=== PATIENT | male | born 1970 | race African-American/Black ===

== ENCOUNTER 2017-07-20 06:12 | Emergency (ER) | payer MEDICAID, OTHER ==
[~2017-07-20] VITALS: Ht 170.2 cm; Wt 72.6 kg
[~2017-07-20 06:12] MED LIST: ATEN25TA; ATORVASTATIN TAB 40MG; SYRI-219
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
--- NOTE | 2017-07-20 06:54 | NUR ---
Patient discharged to home in stable conditon. Written and verbal after care instructions given. Patient verbalizes understanding of instructions. peripheral IV removed. pt walked out of ED in stable and steady gait.
== END 2017-07-20 06:55 | disposition home or self-care (01) ==
LOC: ER 06:15
DX: E10.649 Type 1 diabetes mellitus with hypoglycemia without coma (principal); I10 Essential (primary) hypertension; Z79.4 Long term (current) use of insulin; Z79.899 Other long term (current) drug therapy
CPT/HCPCS: A4663

== ENCOUNTER → 2017-10-22 | Emergency (ER) | payer OTHER ==
[~2017-10-22] VITALS: Ht 167.6 cm; Wt 67.1 kg
--- NOTE | 2017-10-22 08:15 | NUR ---
Dr. Ochoa here to see pt for MSE.
--- NOTE | 2017-10-22 08:45 | NUR ---
Blood sugar of 138 and EKG reported to Dr. Ochoa. No order for insulin received from
[2017-10-22 08:46] LABS: BASOPHILS % (AUTO) 0.2 % (0.0-2.0); EOSINOPHILS % (AUTO) 0.4 % (0.0-7.0); HEMATOCRIT 34.2 % (36.7-47.1); HEMOGLOBIN 11.8 g/dL (12.5-16.3); LYMPHOCYTES % (AUTO) 12.6 % (20.5-51.5); MEAN CORPUSCULAR HEMOGLOBIN 30.1 uug (23.8-33.4); MEAN CORPUSCULAR HGB CONC 35 g/dL (32.5-36.3); MEAN CORPUSCULAR VOLUME 87.1 fL (73.0-96.2); MONOCYTES # (AUTO) 0.6 K/uL (2.0-10.0); MONOCYTES % (AUTO) 7.7 % (0.0-11.0); NEUTROPHILS # (AUTO) 6.1 K/uL (1.8-8.9); NEUTROPHILS % (AUTO) 79.1 % (38.5-71.5); PLATELET COUNT (AUTO) 263 K/uL (152-348); RED BLOOD CELL COUNT(AUTO) 3.92 MIL/uL (4.06-5.63); WHITE BLOOD COUNT (AUTO) 7.7 K/uL (3.6-10.2)
[2017-10-22 08:52] LABS: CREATININE 1.5 mg/dL (0.6-1.3); POTASSIUM 3.8 mmol/L (3.5-5.1)
[2017-10-22 09:33] VITALS: BP 131/71
--- NOTE | 2017-10-22 09:58 | NUR ---
Patient discharged to home in stable conditon via private car. Written and verbal after care instructions given. Patient verbalizes understanding of instructions. Pt to f/u with pcp within 1 week. Addendum: 10/22/17 at 1024 by SILVANA Right PIV removed and all belongings reviewed/returned to the pt.
== END | disposition home or self-care (01) ==
LOC: ER 08:07
DX: E10.649 Type 1 diabetes mellitus with hypoglycemia without coma (principal); I10 Essential (primary) hypertension; Z79.4 Long term (current) use of insulin; Z79.899 Other long term (current) drug therapy
CPT/HCPCS: 36415; 85025; 93005; A4663

== ENCOUNTER 2018-02-13 01:55 | Emergency (ER) | payer OTHER ==
[~2018-02-13] VITALS: Ht 167.6 cm; Wt 65.3 kg
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
[2018-02-13] MEDS ORDERED: HYDROCODONE/APAP 10-325 MG TABLET PO ONE (02:15)
[2018-02-13] MEDS ORDERED: HYDROCODONE/APAP 10-325 MG TABLET ONE (02:17)
--- NOTE | 2018-02-13 02:20 | NUR ---
Xray at bedside.
--- NOTE | 2018-02-13 02:30 | NUR ---
Patient discharged to home in stable conditon. Written and verbal after care instructions given. Patient verbalizes understanding of instructions.
[2018-02-13 02:31] VITALS: BP 144/81
== END 2018-02-13 02:32 | disposition home or self-care (01) ==
LOC: ER 01:58
DX: R07.89 Other chest pain (principal); I10 Essential (primary) hypertension; E10.9 Type 1 diabetes mellitus without complications; Z59.0 Homelessness
CPT/HCPCS: 71101; A4663

== ENCOUNTER 2018-02-16 22:49 | Inpatient (IN) | payer OTHER ==
[~2018-02-16] VITALS: Ht 167.6 cm; Wt 64.9 kg
[2018-02-16] MEDS ORDERED: ASPIRIN 81 MG TAB.CHEW PO ONE (23:15)
[2018-02-16] MEDS ORDERED: NITROGLYCERIN OINT 1 GM PACKET TP ONE ×2 (23:15→23:24)
[2018-02-16] MEDS ORDERED: LABETALOL HCL 100 MG/20 ML VIAL IV ONE (23:15)
[2018-02-16] MEDS ORDERED: IV NORMAL SALINE 1000 ML BAG IV ONE (23:15)
[2018-02-16] MEDS ORDERED: ASPIRIN 81 MG TAB.CHEW ONE (23:24)
[2018-02-16] MEDS ORDERED: LABETALOL HCL 100 MG/20 ML VIAL ONE (23:24)
[2018-02-16 23:32] LABS: HEMATOCRIT 30.3 % (36.7-47.1); HEMOGLOBIN 10.5 g/dL (12.5-16.3); LYMPHOCYTES % (AUTO) 7.5 % (20.5-51.5); MEAN CORPUSCULAR HEMOGLOBIN 29.9 uug (23.8-33.4); MEAN CORPUSCULAR HGB CONC 35 g/dL (32.5-36.3); MEAN CORPUSCULAR VOLUME 86.7 fL (73.0-96.2); MONOCYTES % (AUTO) 13.9 % (0.0-11.0); NEUTROPHILS % (AUTO) 77.7 % (38.5-71.5); PLATELET COUNT (AUTO) 258 K/uL (152-348); WHITE BLOOD COUNT (AUTO) 11.1 K/uL (3.6-10.2)
[2018-02-16 23:33] LABS: BASOPHILS # (AUTO) 0.1 K/uL (0.0-8.0); BASOPHILS % (AUTO) 0.8 % (0.0-2.0); EOSINOPHILS % (AUTO) 0.1 % (0.0-7.0); LYMPHOCYTES # (AUTO) 0.8 K/uL (20.0-40.0); MONOCYTES # (AUTO) 1.5 K/uL (2.0-10.0); NEUTROPHILS # (AUTO) 8.6 K/uL (1.8-8.9)
[2018-02-16 23:42] LABS: CREATININE 2.3 mg/dL (0.6-1.3); POTASSIUM 4.3 mmol/L (3.5-5.1)
[2018-02-16 23:54] LABS: BILIRUBIN,DIRECT 0.1 mg/dL (0.0-0.2); BILIRUBIN,TOTAL 0.5 mg/dL (0.2-1.0); TOTAL PROTEIN, SERUM 7.7 g/dL (6.4-8.2)
[2018-02-17 00:05] LABS: *BILIRUBIN,URIN 1+ (NEGATIVE); *BLOOD, URINE 2+ (NEGATIVE); *CLARITY,URINE CLEAR (CLEAR); *COLOR,URINE YELLOW (YELLOW); *KETONES,URINE 2+ (NEGATIVE); *PROTEIN,URINE 3+ (NEGATIVE); LEUKOCYTE ESTERASE ,URINE NEGATIVE (NEGATIVE); NITRITE, URINE NEGATIVE (NEGATIVE); UGLUCOSE NEGATIVE (NEGATIVE)
[2018-02-17 00:18] LABS: *AMPHETAMINE, URINE NEGATIVE (NEGATIVE); *BARBITURATE, URINE NEGATIVE (NEGATIVE); *CANNABINOID, URINE NEGATIVE (NEGATIVE); *COCCAINE, URINE NEGATIVE (NEGATIVE); *OPIATE, URINE POSITIVE (NEGATIVE); *PHENCYCLIDINE SCREEN,URINE NEGATIVE (NEGATIVE)
[2018-02-17 00:23] LABS: BACTERIA,URINE NONE SEEN /HPF (NONE SEEN); MUCUS,URINE FEW /LPF (0-FEW); SQUAMOUS EPITHELIAL CELL,UR FEW /HPF (NONE SEEN); WBC,URINE 0-3 /HPF (0-3)
[2018-02-17 01:24] VITALS: BP 166/89
[2018-02-17] MEDS ORDERED: ACETAMINOPHEN 325 MG TABLET PO PRN (01:45)
[2018-02-17] MEDS ORDERED: MAGNESIUM HYDROXIDE 30 ML LIQUID UDC PO PRN (01:45)
[2018-02-17] MEDS ORDERED: Z GUARD REMEDY PASTE 57 GM TUBE TOP PRN (01:45)
[2018-02-17] MEDS ORDERED: DEXTROSE 50% 50 ML DISP.SYRIN IV PRN (01:45)
[2018-02-17] MEDS ORDERED: ZOLPIDEM 5 MG TABLET PO PRN (01:45)
[2018-02-17] MEDS ORDERED: ONDANSETRON 4 MG/2 ML VIAL IV PRN (01:45)
[2018-02-17] MEDS ORDERED: FUROSEMIDE 20 MG/2 ML VIAL IV ONE (02:00)
[2018-02-17] MEDS ORDERED: VALSARTAN 80 MG TABLET PO ONE (02:00)
[2018-02-17] MEDS: CEFTRIAXONE 1 G in IV DEXTROSE 5% 50 ML IV SCH (02:45)
[2018-02-17] MEDS ORDERED: CEFTRIAXONE 1 G VIAL ONE (03:00)
[2018-02-17] MEDS: HYDROCODONE/APAP 5-325MG TABLET PO PRN ×3 (03:48→16:56)
[2018-02-17 04:00] VITALS: BP 120/67
[2018-02-17 04:13] LABS: BASOPHILS % (AUTO) 0.1 % (0.0-2.0); HEMATOCRIT 26.6 % (36.7-47.1); HEMOGLOBIN 9.3 g/dL (12.5-16.3); LYMPHOCYTES # (AUTO) 0.9 K/uL (20.0-40.0); LYMPHOCYTES % (AUTO) 7.7 % (20.5-51.5); MEAN CORPUSCULAR HEMOGLOBIN 30.4 uug (23.8-33.4); MEAN CORPUSCULAR HGB CONC 35 g/dL (32.5-36.3); MEAN CORPUSCULAR VOLUME 87.3 fL (73.0-96.2); MONOCYTES # (AUTO) 1.3 K/uL (2.0-10.0); MONOCYTES % (AUTO) 11.6 % (0.0-11.0); NEUTROPHILS # (AUTO) 9.2 K/uL (1.8-8.9); NEUTROPHILS % (AUTO) 80.6 % (38.5-71.5); PLATELET COUNT (AUTO) 220 K/uL (152-348); RED BLOOD CELL COUNT(AUTO) 3.05 MIL/uL (4.06-5.63); WHITE BLOOD COUNT (AUTO) 11.4 K/uL (3.6-10.2)
[2018-02-17 04:25] LABS: MAGNESIUM 1.7 mg/dL (1.8-2.4); PHOSPHOROUS 3.8 mg/dL (2.5-4.9)
[2018-02-17] MEDS: BLOOD SUGAR DIAGNOSTIC 1 EACH STRIP VI SCH ×4 (07:32→20:34)
[2018-02-17] MEDS: VALSARTAN 80 MG TABLET PO SCH (08:13)
[2018-02-17] MEDS: ASPIRIN 81 MG TAB.CHEW PO SCH (08:14)
[2018-02-17 11:18] VITALS: BP 130/73
[2018-02-17] MEDS ORDERED: MAGNESIUM OXIDE 400 MG TABLET PO ONE (13:15)
[2018-02-17 15:02] VITALS: BP 154/83
[2018-02-17] MEDS: INSULIN REGULAR, HUMAN 300 UNIT/3 ML VIAL SQ PRN ×2 (16:59→20:49)
[2018-02-17] MEDS: MORPHINE SULFATE 2 MG/1 ML DISP.SYRIN IV PRN (20:28)
[2018-02-17] MEDS: ATORVASTATIN 40 MG TABLET PO SCH (20:29)
[2018-02-17 20:56] VITALS: BP 171/87
[2018-02-17] MEDS: METOPROLOL TARTRATE 25 MG TABLET PO SCH (21:24)
[2018-02-18] VITALS (7 sets, daily range): BP systolic 132–168; BP diastolic 66–89
[2018-02-18] MEDS ORDERED: hydrALAZINE HCL 20 MG/1 ML VIAL ONE (00:11)
[2018-02-18] MEDS: hydrALAZINE HCL 20 MG/1 ML VIAL IV PRN ×2 (00:49→16:57)
[2018-02-18] MEDS: CEFTRIAXONE 1 G in IV DEXTROSE 5% 50 ML IV SCH (01:00)
[2018-02-18] MEDS: MORPHINE SULFATE 2 MG/1 ML DISP.SYRIN IV PRN ×2 (01:00→16:57)
[2018-02-18] MEDS: BLOOD SUGAR DIAGNOSTIC 1 EACH STRIP VI SCH ×4 (06:51→21:08)
[2018-02-18 07:48] LABS: CREATININE 1.9 mg/dL (0.6-1.3); MAGNESIUM 1.7 mg/dL (1.8-2.4)
[2018-02-18 08:16] LABS: POTASSIUM 6.2 mmol/L (3.5-5.1)
[2018-02-18] MEDS: INSULIN REGULAR, HUMAN 300 UNIT/3 ML VIAL SQ PRN ×4 (08:22→21:04)
[2018-02-18] MEDS: ASPIRIN 81 MG TAB.CHEW PO SCH (08:23)
[2018-02-18] MEDS: METOPROLOL TARTRATE 25 MG TABLET PO SCH ×2 (08:30→21:02)
[2018-02-18] MEDS: VALSARTAN 80 MG TABLET PO SCH (08:30)
[2018-02-18] MEDS ORDERED: SODIUM POLYSTYRENE SULFONATE 15 G/60 ML LIQUID UDC PO ONE (10:45)
[2018-02-18] MEDS ORDERED: FUROSEMIDE 40 MG TABLET PO ONE (10:45)
[2018-02-18] MEDS: CITRIC ACID/SODIUM CITRATE 30 ML SOLUTION PO SCH ×4 (11:02→20:55)
[2018-02-18] MEDS: MAGNESIUM SULFATE/D5W 100 ML IV SCH ×2 (11:02→12:07)
[2018-02-18 14:36] LABS: *BILIRUBIN,URIN NEGATIVE (NEGATIVE); *BLOOD, URINE NEGATIVE (NEGATIVE); *CLARITY,URINE CLEAR (CLEAR); *COLOR,URINE YELLOW (YELLOW); *KETONES,URINE 3+ (NEGATIVE); *PROTEIN,URINE TRACE (NEGATIVE); LEUKOCYTE ESTERASE ,URINE NEGATIVE (NEGATIVE); NITRITE, URINE NEGATIVE (NEGATIVE)
[2018-02-18 14:47] LABS: UGLUCOSE 2+ (NEGATIVE)
[2018-02-18 15:02] LABS: BACTERIA,URINE NONE SEEN /HPF (NONE SEEN); RBC,URINE 0-3 /HPF (0-3); SQUAMOUS EPITHELIAL CELL,UR FEW /HPF (NONE SEEN); WBC,URINE 0-3 /HPF (0-3)
[2018-02-18 15:19] LABS: *CREATININE,URINE 52.1 mg/dL (30-125); *URINE TOTAL PROTEIN RANDOM 37.7 mg/dL (<150/24HR)
[2018-02-18 15:24] LABS: CREATININE 1.9 mg/dL (0.6-1.3); POTASSIUM 4.8 mmol/L (3.5-5.1)
[2018-02-18] MEDS: HYDROCODONE/APAP 5-325MG TABLET PO PRN (19:56)
[2018-02-18] MEDS: ATORVASTATIN 40 MG TABLET PO SCH (20:55)
[2018-02-18] MEDS: INSULIN GLARGINE,HUM 300 UNITS/3 ML CARTRIDGE SQ SCH (21:08)
[2018-02-19] MEDS: CEFTRIAXONE 1 G in IV DEXTROSE 5% 50 ML IV SCH (01:00)
[2018-02-19] MEDS: HYDROCODONE/APAP 5-325MG TABLET PO PRN ×2 (03:26→20:05)
[2018-02-19 05:12] VITALS: BP 159/82
[2018-02-19 05:50] LABS: BASOPHILS # (AUTO) 0.1 K/uL (0.0-8.0); BASOPHILS % (AUTO) 0.7 % (0.0-2.0); EOSINOPHILS # (AUTO) 0.1 K/uL (0.0-0.7); EOSINOPHILS % (AUTO) 0.5 % (0.0-7.0); HEMATOCRIT 28.2 % (36.7-47.1); LYMPHOCYTES # (AUTO) 1.1 K/uL (20.0-40.0); LYMPHOCYTES % (AUTO) 10.1 % (20.5-51.5); MEAN CORPUSCULAR HEMOGLOBIN 30.8 uug (23.8-33.4); MEAN CORPUSCULAR HGB CONC 35 g/dL (32.5-36.3); MEAN CORPUSCULAR VOLUME 87.1 fL (73.0-96.2); MONOCYTES # (AUTO) 1.4 K/uL (2.0-10.0); MONOCYTES % (AUTO) 13.1 % (0.0-11.0); NEUTROPHILS # (AUTO) 8.2 K/uL (1.8-8.9); NEUTROPHILS % (AUTO) 75.6 % (38.5-71.5); PLATELET COUNT (AUTO) 358 K/uL (152-348); RED BLOOD CELL COUNT(AUTO) 3.24 MIL/uL (4.06-5.63); WHITE BLOOD COUNT (AUTO) 10.8 K/uL (3.6-10.2)
[2018-02-19 06:14] LABS: BILIRUBIN,TOTAL 0.3 mg/dL (0.2-1.0); CREATININE 1.6 mg/dL (0.6-1.3); MAGNESIUM 1.7 mg/dL (1.8-2.4); PHOSPHOROUS 4.5 mg/dL (2.5-4.9); POTASSIUM 3.3 mmol/L (3.5-5.1); TOTAL PROTEIN, SERUM 6.5 g/dL (6.4-8.2)
[2018-02-19] MEDS: BLOOD SUGAR DIAGNOSTIC 1 EACH STRIP VI SCH ×4 (06:40→20:14)
[2018-02-19] MEDS ORDERED: POTASSIUM CHLORIDE 20 MEQ TAB.PRT.SR PO ONE (08:00)
[2018-02-19] MEDS ORDERED: MAGNESIUM SULFATE/D5W 100 ML IV SCH (08:00)
[2018-02-19] MEDS: VALSARTAN 80 MG TABLET PO SCH (08:39)
[2018-02-19] MEDS: AMLODIPINE 5 MG TABLET PO SCH (08:39)
[2018-02-19] MEDS: METOPROLOL TARTRATE 25 MG TABLET PO SCH ×2 (08:40→20:05)
[2018-02-19] MEDS: CITRIC ACID/SODIUM CITRATE 30 ML SOLUTION PO SCH ×4 (08:40→20:05)
[2018-02-19] MEDS: ASPIRIN 81 MG TAB.CHEW PO SCH (08:40)
[2018-02-19] MEDS ORDERED: POTASSIUM CHLORIDE 10 MEQ TAB.PRT.SR PO ONE (09:00)
[2018-02-19 11:05] VITALS: BP 138/75
[2018-02-19] MEDS: INSULIN REGULAR, HUMAN 300 UNIT/3 ML VIAL SQ PRN ×3 (12:24→20:15)
[2018-02-19 15:05] VITALS: BP 159/86
[2018-02-19 20:00] VITALS: BP 139/71
[2018-02-19] MEDS: ATORVASTATIN 40 MG TABLET PO SCH (20:05)
[2018-02-19] MEDS: INSULIN GLARGINE,HUM 300 UNITS/3 ML CARTRIDGE SQ SCH (20:16)
[2018-02-20] MEDS: HYDROCODONE/APAP 5-325MG TABLET PO PRN ×2 (00:18→09:56)
[2018-02-20] MEDS: CEFTRIAXONE 1 G in IV DEXTROSE 5% 50 ML IV SCH (02:00)
[2018-02-20 04:00] VITALS: BP 160/92
[2018-02-20 06:09] LABS: BASOPHILS % (AUTO) 0.3 % (0.0-2.0); EOSINOPHILS # (AUTO) 0.1 K/uL (0.0-0.7); EOSINOPHILS % (AUTO) 0.8 % (0.0-7.0); HEMATOCRIT 30.3 % (36.7-47.1); HEMOGLOBIN 10.7 g/dL (12.5-16.3); LYMPHOCYTES # (AUTO) 1.4 K/uL (20.0-40.0); LYMPHOCYTES % (AUTO) 15.6 % (20.5-51.5); MEAN CORPUSCULAR HEMOGLOBIN 30.5 uug (23.8-33.4); MEAN CORPUSCULAR HGB CONC 36 g/dL (32.5-36.3); MONOCYTES # (AUTO) 1.2 K/uL (2.0-10.0); NEUTROPHILS # (AUTO) 6.4 K/uL (1.8-8.9); NEUTROPHILS % (AUTO) 70.3 % (38.5-71.5); PLATELET COUNT (AUTO) 402 K/uL (152-348); RED BLOOD CELL COUNT(AUTO) 3.52 MIL/uL (4.06-5.63); WHITE BLOOD COUNT (AUTO) 9.2 K/uL (3.6-10.2)
[2018-02-20] MEDS: BLOOD SUGAR DIAGNOSTIC 1 EACH STRIP VI SCH (06:37)
[2018-02-20 06:44] LABS: CREATININE 1.6 mg/dL (0.6-1.3); MAGNESIUM 1.7 mg/dL (1.8-2.4); PHOSPHOROUS 4.5 mg/dL (2.5-4.9)
[2018-02-20 06:50] LABS: BAND % (MANUAL) 1 % (0-10); LYMPHOCYTES % (MANUAL) 11 % (20-40); METAMYELOCYTES % 1 % (0-1); MONOCYTES % (MANUAL) 4 % (2-10); NEUTROPHILS % (MANUAL) 83 % (42-75)
[2018-02-20] MEDS ORDERED: AMLO5TAB7 PO (07:52)
[2018-02-20] MEDS ORDERED: METO25TA6 PO (07:52)
[2018-02-20] MEDS ORDERED: ATOR40TA PO (07:52)
[2018-02-20] MEDS ORDERED: ASPI81TA31 PO (07:52)
[2018-02-20] MEDS ORDERED: VALS80TA2 PO (07:52)
[2018-02-20] MEDS: CITRIC ACID/SODIUM CITRATE 30 ML SOLUTION PO SCH (09:05)
[2018-02-20 09:06] VITALS: BP 162/91
[2018-02-20] MEDS: AMLODIPINE 5 MG TABLET PO SCH (09:06)
[2018-02-20] MEDS: METOPROLOL TARTRATE 25 MG TABLET PO SCH (09:06)
[2018-02-20] MEDS: ASPIRIN 81 MG TAB.CHEW PO SCH (09:06)
[2018-02-20] MEDS: VALSARTAN 80 MG TABLET PO SCH (09:06)
[2018-02-20] MEDS ORDERED: hydrALAZINE HCL 25 MG TABLET PO SCH (14:00)
[2018-02-21 09:08] LABS: A/G RATIO 0.8 (0.7-1.7); ALBUMIN 2.6 g/dL (2.9-4.4); ALPHA-1-GLOBULIN 0.3 g/dL (0.0-0.4); ALPHA-2-GLOBULIN 0.9 g/dL (0.4-1.0); BETA GLOBULIN 0.9 g/dL (0.7-1.3); GLOBULIN, TOTAL 3.2 g/dL (2.2-3.9); M-SPIKE Not Observed g/dL (Not Observed)
== END 2018-02-20 11:10 | disposition home or self-care (01) | DRG 203 ==
LOC: ER 22:51 → TELE 02-17 00:30 → MED 02-18 16:20
PROVIDERS: ADMIT Nurse Practitioner Acute Care; ATTEND Hospitalist
DX: M94.0 Chondrocostal junction syndrome [Tietze] (principal); N17.0 Acute kidney failure with tubular necrosis; J90 Pleural effusion, not elsewhere classified; R65.10 Systemic inflammatory response syndrome (SIRS) of non-infectious origin without acute organ dysfunction; E10.65 Type 1 diabetes mellitus with hyperglycemia; E83.42 Hypomagnesemia; I11.9 Hypertensive heart disease without heart failure; E87.5 Hyperkalemia; Z59.0 Homelessness; E78.5 Hyperlipidemia, unspecified; Z96.41 Presence of insulin pump (external) (internal); M25.512 Pain in left shoulder
CPT/HCPCS: 36415; 70030-TC; 71045; 76770; 80307; 83605; 83735; 83970; 84100; 84133; 84155; 84156; 84165; 84300; 84443; 85025; 93005; 93307; A4663; G0378; J0360; J0696; J1815; J1940; J2270; J3475; J3490; J7030; J7050; J7060

== ENCOUNTER 2018-05-14 00:39 | Emergency (ER) | payer OTHER ==
[~2018-05-14] VITALS: Ht 167.6 cm; Wt 63.5 kg
[~2018-05-14 00:39] MED LIST changes: +AMLO5TAB9 PO; +ASPI81TA31 PO; -ATEN25TA; +ATOR40TA PO; -ATORVASTATIN TAB 40MG; +METO25TA6 PO; +VALS80TA2 PO
[2018-05-14] MEDS ORDERED: KETOROLAC TROMETHAMINE 60 MG INJ IM ONE ×2 (01:00→01:02)
--- NOTE | 2018-05-14 01:00 | NUR ---
Pt. ambulated into ED w/ c/o 01/30 L neck pain X 4 days that radiates to L shoulder and upper back, pt. denies falling or any other mechanical injury, denies TOSCANO/F/C/N/V/D/SOB/CP, denies dizziness, visual disturbances, will continue to monitor,
--- NOTE | 2018-05-14 01:31 | NUR ---
Pt. resting in bed w/ eyes closed within view of nursing station, NAD
--- NOTE | 2018-05-14 01:32 | NUR ---
Called Radiology for Xray
--- NOTE | 2018-05-14 01:40 | NUR ---
Rad. tech at bedside for xray
--- NOTE | 2018-05-14 02:06 | NUR ---
Patient discharged to home in stable conditon. Written and verbal after care instructions given. Patient verbalizes understanding of instructions. Pt. d/c w/ prescription per MD order, d/c papers signed, ID band removed, all belongings w/ pt., instructed not to drive, ambulated out of ED w/ steady gait, NAD
== END 2018-05-14 02:12 | disposition home or self-care (01) ==
LOC: ER 00:41
DX: M54.12 Radiculopathy, cervical region (principal); E10.9 Type 1 diabetes mellitus without complications; I10 Essential (primary) hypertension; Z59.0 Homelessness; Z79.82 Long term (current) use of aspirin; Z79.4 Long term (current) use of insulin; Z79.899 Other long term (current) drug therapy
CPT/HCPCS: 72040; 93005; 96372; 99283; J1885; A4663

== ENCOUNTER 2018-05-29 23:59 | Emergency (ER) | payer OTHER ==
[~2018-05-29] VITALS: Ht 167.6 cm; Wt 63.5 kg
--- NOTE | 2018-05-30 00:45 | NUR ---
Pt ambulated into dept with c/o epigastric pain x1 day and hyperglycemia. Patient a/o x 4. Patient stated that he checked blood sugar earlier today and it resulted in "HI" so he self administered 33Units of Humalog. Patient's pain scale 10/10, irritable, facial grimacing. Patient c/o some nausea, respiratory rate unlabored.
[2018-05-30] MEDS ORDERED: ONDANSETRON ODT 4 MG TAB.RAPDIS ONE (01:01)
[2018-05-30] MEDS ORDERED: FAMOTIDINE 20 MG TABLET ONE (01:02)
[2018-05-30] MEDS ORDERED: HYDROCODONE/APAP 10-325 MG TABLET ONE (01:02)
[2018-05-30] MEDS ORDERED: MAG HYDROX/AL HYDROX/SIMETH 30 ML LIQUID UDC ONE (01:02)
[2018-05-30] MEDS ORDERED: DICYCLOMINE HCL LIQ 10 MG/5 ML UDC ONE (01:03)
[2018-05-30] MEDS ORDERED: LIDOCAINE VISCUS 2% 15 ML UDC ONE (01:04)
[2018-05-30] MEDS: MAG HYDROX/AL HYDROX/SIMETH 30 ML LIQUID UDC PO ONE (01:10)
[2018-05-30] MEDS: LIDOCAINE VISCUS 2% 15 ML UDC MM ONE (01:10)
[2018-05-30] MEDS: DICYCLOMINE HCL LIQ 10 MG/5 ML UDC PO ONE (01:10)
[2018-05-30] MEDS: FAMOTIDINE 20 MG TABLET PO ONE (01:11)
[2018-05-30] MEDS: HYDROCODONE/APAP 10-325 MG TABLET PO ONE (01:11)
[2018-05-30] MEDS: ONDANSETRON ODT 4 MG TAB.RAPDIS SL ONE (01:11)
[2018-05-30 01:15] LABS: BASOPHILS # (AUTO) 0.1 K/uL (0.0-8.0); BASOPHILS % (AUTO) 0.7 % (0.0-2.0); EOSINOPHILS % (AUTO) 0.5 % (0.0-7.0); HEMATOCRIT 32.6 % (36.7-47.1); HEMOGLOBIN 11.2 g/dL (12.5-16.3); LYMPHOCYTES # (AUTO) 1.6 K/uL (20.0-40.0); LYMPHOCYTES % (AUTO) 19.6 % (20.5-51.5); MEAN CORPUSCULAR HEMOGLOBIN 29.7 uug (23.8-33.4); MEAN CORPUSCULAR HGB CONC 34 g/dL (32.5-36.3); MEAN CORPUSCULAR VOLUME 86.3 fL (73.0-96.2); MONOCYTES # (AUTO) 0.9 K/uL (2.0-10.0); MONOCYTES % (AUTO) 10.8 % (0.0-11.0); NEUTROPHILS # (AUTO) 5.5 K/uL (1.8-8.9); NEUTROPHILS % (AUTO) 68.4 % (38.5-71.5); PLATELET COUNT (AUTO) 256 K/uL (152-348); RED BLOOD CELL COUNT(AUTO) 3.78 MIL/uL (4.06-5.63); WHITE BLOOD COUNT (AUTO) 8.1 K/uL (3.6-10.2)
[2018-05-30 01:20] LABS: BILIRUBIN,DIRECT 0.1 mg/dL (0.0-0.2); BILIRUBIN,TOTAL 0.3 mg/dL (0.2-1.0); POTASSIUM 4.4 mmol/L (3.5-5.1); TOTAL PROTEIN, SERUM 6.9 g/dL (6.4-8.2)
--- NOTE | 2018-05-30 01:56 | NUR ---
Pt sleeping in room. V/S stable, NAD.
--- NOTE | 2018-05-30 04:35 | NUR ---
Per Dr. Cullen, patient okay for d/c. Patient given written and verbal discharge instructions. Patient verbalizes understanding of instructions. Patient is ambulatory with steady gait. Refuses offer of nursing home placement. Patient given list of available shelters in surrounding area.
[2018-05-30 06:36] VITALS: BP 129/84
== END 2018-05-30 04:35 | disposition home or self-care (01) ==
LOC: ER 23:59
DX: R10.13 Epigastric pain (principal); E10.9 Type 1 diabetes mellitus without complications; I10 Essential (primary) hypertension; Z79.82 Long term (current) use of aspirin; Z79.4 Long term (current) use of insulin; Z79.899 Other long term (current) drug therapy
CPT/HCPCS: 36415; 70030-TC; 71045; 83690; 85025; A4663; Q0162

== ENCOUNTER 2018-10-04 00:40 | Emergency (ER) | payer OTHER ==
[~2018-10-04] VITALS: Ht 167.6 cm; Wt 62.6 kg
--- NOTE | 2018-10-04 01:26 | NUR ---
Dr Ochoa at bedside for MSE.
[2018-10-04] MEDS ORDERED: KETOROLAC TROMETHAMINE 30 MG INJ IM ONE (01:45)
--- NOTE | 2018-10-04 01:50 | NUR ---
Xray at bedside.
[2018-10-04] MEDS ORDERED: KETOROLAC TROMETHAMINE 30 MG INJ ONE (01:53)
[2018-10-04 03:47] VITALS: BP 140/80
--- NOTE | 2018-10-04 03:48 | NUR ---
Patient discharged to home in stable conditon. Written and verbal after care instructions given. Patient verbalizes understanding of instructions. Name tag removed. Patient ambulated out of ER with steady gait. All belongings with patient.
== END 2018-10-04 03:48 | disposition home or self-care (01) ==
LOC: ER 00:40
DX: S20.212A Contusion of left front wall of thorax, initial encounter (principal); E10.9 Type 1 diabetes mellitus without complications; I10 Essential (primary) hypertension; Z79.82 Long term (current) use of aspirin; Z79.4 Long term (current) use of insulin; Z79.899 Other long term (current) drug therapy; X50.1XXA Overexertion from prolonged static or awkward postures, initial encounter; Y93.89 Activity, other specified; Y92.89 Other specified places as the place of occurrence of the external cause; Y99.8 Other external cause status
CPT/HCPCS: 71101; 93005; 96372; 99283; J1885; A4663

== ENCOUNTER 2019-01-19 21:59 | Emergency (ER) | payer OTHER ==
[~2019-01-19] VITALS: Ht 167.6 cm; Wt 64.9 kg
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
[2019-01-19] MEDS ORDERED: HYDROCODONE/APAP 10-325 MG TABLET PO ONE (22:45)
[2019-01-19] MEDS ORDERED: HYDROCODONE/APAP 10-325 MG TABLET ONE (22:48)
[2019-01-19 22:56] VITALS: BP 147/86
--- NOTE | 2019-01-19 22:58 | NUR ---
discharge instructions given & was understood. discharged ambulatory, stable. Patient is ambulatory with steady gait. Refuses offer of intermediate placement. Patient given list of available shelters in surrounding area.
== END 2019-01-19 22:57 | disposition home or self-care (01) ==
LOC: ER 21:59
DX: R07.89 Other chest pain (principal); E11.9 Type 2 diabetes mellitus without complications; I10 Essential (primary) hypertension; Z79.82 Long term (current) use of aspirin; Z79.4 Long term (current) use of insulin; Z79.899 Other long term (current) drug therapy; W19.XXXA Unspecified fall, initial encounter; Y93.89 Activity, other specified; Y92.89 Other specified places as the place of occurrence of the external cause; Y99.8 Other external cause status
CPT/HCPCS: 71101; A4663

== ENCOUNTER 2021-06-30 01:48 | Emergency (ER) | payer OTHER ==
[~2021-06-30] VITALS: Ht 162.6 cm; Wt 72.6 kg
[~2021-06-30 01:48] MED LIST changes: +AMLO-212 PO; -AMLO5TAB9 PO; -ASPI81TA31 PO; +ATEN25TA PO
[2021-06-30] MEDS ORDERED: KETOROLAC TROMETHAMINE 60 MG INJ IM ONE ×2 (03:15→03:31)
[2021-06-30] MEDS ORDERED: ACET1TAB23 PO (05:21)
--- NOTE | 2021-06-30 05:25 | NUR ---
Patient discharged to home in stable condition. Written and verbal after care instructions given. Patient verbalizes understanding of instructions. Stressed follow up or return to ER for worsening s/s.
[2021-06-30 05:26] VITALS: BP 150/88
== END 2021-06-30 05:26 | disposition home or self-care (01) ==
LOC: ER 01:51
DX: S83.91XA Sprain of unspecified site of right knee, initial encounter (principal); W18.42XA Slipping, tripping and stumbling without falling due to stepping into hole or opening, initial encounter; Y93.K1 Activity, walking an animal; Y92.89 Other specified places as the place of occurrence of the external cause; E11.9 Type 2 diabetes mellitus without complications; I10 Essential (primary) hypertension; E78.5 Hyperlipidemia, unspecified; Z79.899 Other long term (current) drug therapy; Z79.4 Long term (current) use of insulin
CPT/HCPCS: 73564; 96372; 99283; J1885; A4663

== ENCOUNTER 2022-01-29 18:59 | Emergency (ER) | payer OTHER ==
[~2022-01-29] VITALS: Ht 167.6 cm; Wt 68.0 kg
[~2022-01-29 18:59] MED LIST changes: +ACET1TAB23 PO
--- NOTE | 2022-01-29 20:15 | NUR ---
Dr. Mcbride at bedside for MSE.
[2022-01-29] MEDS ORDERED: OXYCODONE/APAP 5-325 MG TABLET ONE (20:21)
[2022-01-29] MEDS ORDERED: OXYCODONE/APAP 5-325 MG TABLET PO ONE (20:30)
[2022-01-29] MEDS ORDERED: OXYC-128 PO (20:32)
--- NOTE | 2022-01-29 21:36 | NUR ---
Patient discharged to home in stable condition. Written and verbal after care instructions given. Patient verbalizes understanding of instructions. Stressed follow up or return to ER for worsening s/s. Patient out of E.R. with crutches no falls noted, vital sign stable and no signs of distress took all his belongings and was instructed not to drive.
[2022-01-29 21:42] VITALS: BP 145/84
== END 2022-01-29 21:42 | disposition home or self-care (01) ==
LOC: ER 19:02
DX: S83.91XA Sprain of unspecified site of right knee, initial encounter (principal); W01.0XXA Fall on same level from slipping, tripping and stumbling without subsequent striking against object, initial encounter; Y92.009 Unspecified place in unspecified non-institutional (private) residence as the place of occurrence of the external cause; M72.2 Plantar fascial fibromatosis; Z79.4 Long term (current) use of insulin; I10 Essential (primary) hypertension; R10.13 Epigastric pain; E78.5 Hyperlipidemia, unspecified; E10.9 Type 1 diabetes mellitus without complications; Z79.899 Other long term (current) drug therapy
CPT/HCPCS: 73630; A4663

== ENCOUNTER 2024-06-14 12:12 | Emergency (ER) | payer BC, OTHER ==
[~2024-06-14] VITALS: Ht 165.1 cm; Wt 72.6 kg
[~2024-06-14 12:12] MED LIST changes: +OXYC-128 PO
[2024-06-14 13:40] VITALS: BP 142/91; O2SAT 99
== END 2024-06-14 13:41 | disposition home or self-care (01) ==
LOC: ER 12:27
DX: S60.222A Contusion of left hand, initial encounter (principal); E11.9 Type 2 diabetes mellitus without complications; I10 Essential (primary) hypertension; Z79.899 Other long term (current) drug therapy; Z60.2 Problems related to living alone; X58.XXXA Exposure to other specified factors, initial encounter; Y93.89 Activity, other specified; Y92.89 Other specified places as the place of occurrence of the external cause; Y99.8 Other external cause status
CPT/HCPCS: 73120; A4606; A4663